=== PATIENT | female | born 1960 | race Caucasian/White ===

== ENCOUNTER → 2020-10-05 21:19 | Outpatient (CLI) | payer MEDICARE ==
[2014-09-29 12:50] VITALS: BMI 61.4
[~2020-10-05 21:19] MED LIST: COUMADIN5 MG PO; COUMADIN7.5 MG PO; GLUCOPHAGE500 MG PO; K-DUR20 MEQ PO; LASIX40 MG PO; LISINOPRIL5 MG PO; SYNTHROID100 MCG PO
[2020-10-05 22:04] LABS: CALC OSMOLALITY 277 mosm/kg (275-300); CALCIUM 9.1 mg/dL (8.5-10.1); CHLORIDE - SERUM 101 mmol/L (98-107); CREATININE - SERUM 0.7 mg/dL (0.6-1.3); GLUCOSE 86 mg/dL (74-106); POTASSIUM - SERUM 4.5 mmol/L (3.5-5.1); PRO BNP 580 pg/mL (0-125); SODIUM 139 mmol/L (136-145); THYROID STIMULATING HORMONE 2.19 uIU/mL (0.36-3.74); UREA NITROGEN 14 mg/dL (7-18); eGFR NON AFRICAN AMERICAN > 90 mL/min (90-120)
== END | disposition home or self-care (01) ==
LOC: D.LABREF 21:19
PROVIDERS: ATTEND Family Medicine
DX: I48.91 Unspecified atrial fibrillation (principal); E11.9 Type 2 diabetes mellitus without complications; I50.43 Acute on chronic combined systolic (congestive) and diastolic (congestive) heart failure; I27.20 Pulmonary hypertension, unspecified